=== PATIENT | female | born 1980 | race Caucasian/White ===

== ENCOUNTER 2020-05-20 17:44 | Emergency (ER) | payer OTHER ==
[2020-05-20 18:00] VITALS: BP 125/70; PULSE 81; TEMP 98.7; BMI 26.5
== END 2020-05-20 18:50 | disposition home or self-care (01) ==
LOC: FER 17:44
DX: O00.01 Abdominal pregnancy with intrauterine pregnancy (principal); Z3A.10 10 weeks gestation of pregnancy
CPT/HCPCS: 76801-TC; 81003; 84703; 87086; 99284-25